=== PATIENT | female | born 1990 | race African-American/Black ===

== ENCOUNTER 2017-12-23 13:56 | Emergency (ER) | payer OTHER ==
[~2017-12-23] VITALS: Ht 160 cm; Wt 54.5 kg
[~2017-12-23 13:56] MED LIST: ALBUTEROL SULF8.5 GM IH; CLINDAMYCIN HC150 MG PO; FLEXERIL5 MG PO; KEFLEX500 MG PO; MOTRIN800 MG PO; NAPROSYN500 MG PO; NAPROXEN500 MG PO; NORCO 5/3251 TABLET PO; PRENATAL1 EACH PO; PROAIR RESPICL90 MCG IH; TORADOL10 MG PO; TRAMADOL HCL50 MG PO; TYLENOL WITH C1 EACH PO; ZOFRAN4 MG PO
[2017-12-23 15:48] LABS: CHLORIDE 109 mEq/L (99-109); POTASSIUM 3.6 mEq/L (3.7-5.4); SODIUM 142 mEq/L (136-147)
[2017-12-23 15:49] LABS: GLUCOSE 93 mg/dL (70-99)
[2017-12-23 15:53] LABS: CREATININE 0.8 mg/dL (0.6-1.3); GFR ESTIMATE (CALCULATED) > 59 mL/min/
[2017-12-23 15:54] LABS: UREA NITROGEN (BUN) 8 mg/dL (9-23)
[2017-12-23] MEDS ORDERED: MOTRIN800 MG PO (16:26)
[2017-12-23 16:44] VITALS: BP 112/60
== END 2017-12-23 16:47 | disposition home or self-care (01) ==
LOC: EME 13:56
PROVIDERS: Nurse Practitioner Family
DX: S83.91XA Sprain of unspecified site of right knee, initial encounter (principal); R63.1 Polydipsia; R35.8 Other polyuria; J45.909 Unspecified asthma, uncomplicated; F31.9 Bipolar disorder, unspecified; F17.200 Nicotine dependence, unspecified, uncomplicated; Z88.0 Allergy status to penicillin
CPT/HCPCS: 73564; 80048; 99281; 99284